=== PATIENT | female | born 1965 | race Caucasian/White ===

== ENCOUNTER 2016-08-21 08:58 | Day surgery (SDC) | payer OTHER ==
[2016-08-21] VITALS (8 sets, daily range): BP systolic 114–137; BP diastolic 64–75; PULSE 54–78; RESP 11–16; O2SAT 93–100
[~2016-08-21] VITALS: Ht 165.1 cm; Wt 134.9 kg
[~2016-08-21 08:58] MED LIST: AMLO2.5T PO; ATEN50TA PO; CeFAZolin Inj 3 GM in IV Premix IV ONE; HYG25 PO
[2016-08-21] MEDS ORDERED: Dexamethasone 4 mg/mL Inj ONE (08:59)
[2016-08-21] MEDS ORDERED: Propofol 10,000 mCg/mL 20 mL Inj ONE (08:59)
[2016-08-21] MEDS ORDERED: fentaNYL-PF 50 mCg/mL 2 mL Inj ONE (08:59)
[2016-08-21] MEDS ORDERED: Glycopyrrolate 0.2 mg/mL 5 mL Inj ONE (08:59)
[2016-08-21] MEDS ORDERED: MeTOProlol 1 mg/mL 5 mL Inj ONE (08:59)
[2016-08-21] MEDS ORDERED: Succinylcholine Chloride 20 mg/mL 5 mL Inj ONE (08:59)
[2016-08-21] MEDS ORDERED: Rocuronium 10 mg/mL 5 mL Inj ONE (08:59)
[2016-08-21] MEDS ORDERED: MetoCLOpramide 5 mg/mL 2 mL Inj ONE (08:59)
[2016-08-21] MEDS ORDERED: Ondansetron 2 mg/mL 2 mL Inj ONE (08:59)
[2016-08-21] MEDS ORDERED: EPHEDrine/NS 5 mg/mL 5 mL Syringe ONE (08:59)
[2016-08-21] MEDS ORDERED: Lidocaine PF 1% 30 mL Inj ONE (08:59)
[2016-08-21] MEDS ORDERED: HYDROmorphone 2 mg/mL Inj ONE (08:59)
[2016-08-21] MEDS: Lactated Ringer's 1,000 ML IV SCH ×2 (09:10→11:12)
--- NOTE | 2016-08-21 10:01 | PCM.HPANE ---
Patient Data Date of Service: Aug 21, 2016 Surgeon Admitting Provider: Attending Provider:Ayleen Taylor MD Primary Care Physician:Melissa Staton Other Provider:Chalo Pulido Anesthesia Reason for Visit Breast Cancer, Breast Asymmetry Ht/WT & BMI Height (Feet): 5 Height (Inches): 5 Weight (Kilograms): 134.9 Body Mass Index 49.00 Allergies Coded Allergies: No Known Allergies (Verified , 04/17/06) Diabetes History Hx Diabetes?: No MRSA MRSA: No Medications Hypertension Medication: Yes Home Meds Incl Beta Arnulfo: Yes (Atenolol 75mg) Date Beta Arnulfo Taken: Aug 21, 2016 Time Beta Arnulfo Taken: 0600 Reported Medications Atenolol 50 Mg Bmthpl02 Mg PO DAILY 07/11/16 Chlorthalidone 25 Mg Qznidb00 Mg PO DAILY 07/11/16 Amlodipine 2.5 Mg Tablet2.5 Mg PO DAILY 07/11/16 History History of ENT Problems?: No Hx of Heart Problems?: Yes Cardiovascular History: Positive for:: Hypertension Denies:: Chest Pain Heart Murmur Pacemaker Rheumatic Fever Thrombophlebitis Hx of Respiratory Problem?: No Respiratory History: Denies:: Asthma COPD Emphysema Oxygen Administration Pneumonia Tuberculosis Use of C-PAP Machine Use of Inhalers / NEBS Hx Neurologic Problems?: No Neurological History: Denies:: Alzheimer's Disease CVA Dementia Dizziness Headaches Multiple Sclerosis Parkinson's Disease Seizures Hx of GI Problems?: No Gastrointestinal History: Denies:: Cirrhosis Gall Bladder Disease Gastrointestinal Bleeding Hiatal Hernia Hx of Problems?: Yes Genitourinary History: Positive for:: Kidney Stones (hx of left kidney stones , lithotripsy) Denies:: HX of Hemodialysis Urinary Tract Infection Female Hx: Positive for:: Problems with Breasts? (right breast ca current admission problem) Denies:: Currently Endometriosis Pelvic Inflammatory Skin History: Denies:: History Skin Disorders? Pressure Ulcers Hx Musculoskeletal Problems?: No Hx of Psycho/Social Problems?: No Hx Surgeries?: Yes (Hysterectomy, excision tumor right upper neck, kidney stones) Hx Any Other Health Problems?: Yes Other History: Positive for:: Cancer (Right Breast Cancer; Cancer Tumor behind Right ear) Hospitalization ([facility]) Denies:: Endocrine Disease Thyroid Disease Hx Diabetes: No Hx Alcohol Use: YesHx Substance Use: No Smoking Status: Never Smoker Have You Smoked inLast 12 mo: No Stop/Bang Treated for Sleep Apnea?: Yes Do You Have a CPAP Machine?: Yes S-Snoring: Do You Snore Loudly: No T-Tired: feel tired, fatigued: No O-Obsered: Observed not breath: No P-Blood Pressure: treated: Yes B- Body Mass Index > 35 kg/m2: Yes A- Age over 50: Yes N- Neck Large Circumference: No G- Gender Male: No ALAN Total Score: 3 ALAN Risk Assessment: High Risk, =/>3 Yes ALAN Category 1: Yes Risk Assessment Category Category 1A: Patient has history of documented sleep apnea, and HAS NOT received any narcotic, sedative or anesthesia administration during this stay. Category 1B: Patient has history of documented sleep apnea, and HAS received any narcotic , sedative or anesthesia administration during this stay Category 2: Patient has SUSPECTED Obstructive Sleep Apnea, and HAS received any narcotic , sedative or anesthesia administration during this stay. Category 3: Patient has SUSPECTED Obstructive Sleep Apnea and HAS NOT received narcotic, sedative or anesthesia administration during this stay. Category 4: Outpatient in Procedural Areas with known sleep apnea or who screen positive for High Risk via the STOP/BANG questionnaire. Exam Exam Vital Signs Vital Signs Date Time Temp Pulse Resp B/P Pulse Ox O2 Delivery O2 Flow Rate FiO2 08/21/16 09:50 CPAP/BIPAP 08/21/16 09:47 36.3 54 16 114/74 97 Room Air 08/21/16 09:46 36.3 54 114/74 General Appearance: Alert, Oriented X3, Cooperative, No Acute Distress HEENT/AIRWAY: MP 3, Neck Movement (short, thick, FROM), Mouth Opening (3), Other (TMD<3) Lungs: Normal Air Movement, Diminished Heart: Exam Unremarkable, Regular Rate/Rhythm, Normal S1, Normal S2, No Murmurs /Rubs/Gallops Meds/Labs/Diagnostics Admission Meds Current Medications Lactated Ringer's (Lr) 1,000 ml @ 10 mls/hr Q24H IV Last administered on t 09:10; Start 08/21/16 at 05:00; Stop 08/25/16 at 08:59 Plan Impression Patient chart reviewed, patient interviewed and anesthestic plan with risks, benefits, and alternatives discussed, and informed consent obtained. NPO Status: 08/20 at 2100 ASA Physical Status: ASA3 Severe Disease Anesthetic Plan: GA Bene/Risks/Altern/Consents: Yes HP Complete Prior to Induction: Yes Geremias Kelley MD Aug 21, 2016 10:01
[2016-08-21] MEDS ORDERED: Lactated Ringer's 1,000 ML IV ONE ×2 (12:14→16:12)
--- NOTE | 2016-08-21 12:16 | DRSVH ---
PROCEDURE: NM SENTINEL NODE INJECTION ONLY, RIGHT BREAST RADIOPHARMACEUTICAL: 0.5 mCi Millipore filtered Tc-99m sulfur colloid. INDICATIONS: RIGHT BREAST CANCER PROCEDURE: The indications, alternatives, benefits, risks, and complications of the procedure were explained to the patient. Written informed consent was obtained and placed in the chart. The area around the nip ple was prepped and draped in a sterile fashion. Tc-99m sulfur colloid was injected in the outer edg e of the areola in the right breast. No image was obtained. IMPRESSION: Administration of radiotracer into the right breast periareolar region for intra-operati ve sentinel lymph node localization. Dictated by: Katya Limon M.D. on 08/21/2016 at 12:15 Approved by: Katya Limon M.D. on 08/21/2016 at 12:15
[2016-08-21] MEDS ORDERED: Lactated Ringer's 500 ML IV PRN (13:52)
[2016-08-21] MEDS ORDERED: Lactated Ringer's 1,000 ML IV SCH (13:52)
[2016-08-21] MEDS ORDERED: EPHEDrine Sulfate 50 mg/mL Inj IVPUSH PRN (13:55)
[2016-08-21] MEDS ORDERED: Dexamethasone 4 mg/mL Inj IVPUSH PRN (13:55)
[2016-08-21] MEDS ORDERED: fentaNYL-PF 50 mCg/mL 2 mL Inj IVPUSH PRN (13:55)
[2016-08-21] MEDS ORDERED: HYDROmorphone 1 mg/mL Inj IVPUSH PRN (13:55)
[2016-08-21] MEDS ORDERED: Ondansetron 2 mg/mL 2 mL Inj IVPUSH PRN (13:55)
[2016-08-21] MEDS ORDERED: MetoCLOpramide 5 mg/mL 2 mL Inj IVPUSH PRN (13:55)
[2016-08-21] MEDS ORDERED: Phenylephrine 10,000 mCg/mL Inj IVPUSH PRN (13:55)
[2016-08-21] MEDS ORDERED: Mineral Oil-Light (Sterile) 25 mL TOPICAL ONE (14:45)
--- NOTE | 2016-08-21 14:46 | PCM.SURGPO ---
Immediate Operative Note Date of Surgery: Aug 21, 2016 Pre Operative Diagnosis Right Breast Cancer Post Operative Diagnosis Right Breast Cancer Procedure Wire Localized R Partial Mastectomy with Right Axillary [place] lymph node biopsy Surgeon and Shoe Repair Supervisor Surgeon: Ayleen Taylor MD Assistants: Ajay Puentes PAC Findings Clip located in specimen radiograph. Additional Posterior, Lateral & Inferior Margins taken. SLN with Max activity of 25 with no background in the axilla Additional palpable Non sentinel node removed Complications There were no periprocedural complications identified. Surgical Specimen Removed: Yes Specimen sent to Pathology: Yes Anesthetic Administered: GA Grafts, Implants: None Output, Estimated Blood Loss: 5 Blood Admin during surgery: No Attending Statement Seo Coordinator listed was medically necessary for the successful completion of the case Ayleen Tayolr MD Aug 21, 2016 14:46
[2016-08-21] MEDS ORDERED: oxyCODONE-Acetamin 5-325 mg Tablet PO PRN (15:25)
[2016-08-21] MEDS ORDERED: CLIN150C2 PO (15:42)
--- NOTE | 2016-08-21 18:37 | OP ---
[address] [address] OPERATIVE REPORT PATIENT: RACHELLE SHAFFER : 1965 MR#: [id number] ADMIT: 08/21/2016 JOB ID: [id number] DATE OF SURGERY: 08/21/2016 PREOPERATIVE DIAGNOSIS(ES): Right breast cancer. POSTOPERATIVE DIAGNOSIS(ES): Right breast cancer. PROCEDURE PERFORMED: Wire localized right partial mastectomy with right axillary sentinel lymph node biopsy. SURGEON: Ayleen Taylor MD. ENAMEL APPLIER: Ajay Puentes PA-C INDICATIONS: The patient is a 51-year-old lady who had a screening mammogram done in May 2016 leading to the diagnosis of right breast cancer. She had no breast mass or discharge or other symptoms. The mammogram on June 05, 2016 showed a 1.6 cm irregular mass with spiculated margin in the right breast at 6 o'clock posterior depth. The ultrasound performed on June 14, 2016 confirmed it and an ultrasound-guided biopsy performed on June 22, 2016 showed invasive ductal carcinoma. She desired oncoplastic surgery with simultaneous breast reduction and she has seen my colleague, Dr. Raffi Ramirez and we plan to proceed at the same time after discussing the risks, benefits, and alternatives. She presented today and went to [facility] and ultrasound-guided wire localization. She then had radiocolloid injected in the day surgery area and was then brought to the operating room. PROCEDURE: Both the breasts were prepped and draped in the usual sterile fashion. A surgical time-out was undertaken using safety checklist, and all were in agreement. I began by operating on the right side and Dr. Ramirez started on the other side. Please refer to his dictation for his part of the operation. At the time of the skin preparation, the wire used to localize the right breast mass ended up, unfortunately, moving and actually went into the surgical site. But based on mammographic localization images, I made a semilunar incision within the skin island marked by Dr. Ramirez including the wire insertion site and developed planes underneath the skin going posteriorly all the way to the chest wall. After dissecting close to the surgical specimen circumferentially and we got down to the inferolateral aspect off the dissection, I was able to visualize the wire but it appeared to go farther beyond the palpable area of the tumor at this time. So, at this point, I decided to amputate the wire and send the first partial mastectomy specimen which I believed included the tumor. This specimen radiograph indeed confirmed the presence of the tumor and the biopsy clip. I then removed the wire and resected additional posterior and inferior and lateral margins to ensure clear margins widely around this area of the tumor. After ensuring good hemostasis, I then directed my attention to the axilla. Because we did not have good gamma probe activity as seen at the skin level in the axilla, we also injected 1 mL of methylene blue into the subareolar region before starting our breast dissection and massaged it. I made a 3 cm incision in the axilla and dissected all the way into the axilla through the axillary fascia, but still not able to detect any gamma probe activity or see any obvious blue dye. Upon dissection of the inferior aspect of the axillary lymph node packet, I did palpate some lymph nodes and while I was debating whether to perform a full axillary lymph node dissection, we increased the sensitivity off our gamma probe and were able to detect a single focus of gamma count close to a 20 on the lymph node. I went ahead and removed this lymph node with electrocautery and the ex vivo count was again confirmed to be of 25 with again no background count in the axilla. I did remove an additional nonsentinel node around this area which was palpable. After this, I turned over the operation to Dr. Raffi Ramirez for proceeding with the reduction mammoplasty on the right side. Please refer to his dictation for further operative details. [facility]
--- NOTE | 2016-08-22 00:29 | OP ---
[address] [address] OPERATIVE REPORT PATIENT: RACHELLE SHAFFER : 1965 MR#: [id number] ADMIT: 08/21/2016 JOB ID: [id number] DATE OF SURGERY: 08/21/2016 PREOPERATIVE DIAGNOSIS(ES): 1. Right-sided breast cancer. 2. Breast asymmetry, status post right segmentectomy. 3. Macromastia. POSTOPERATIVE DIAGNOSIS(ES): 1. Right-sided breast cancer. 2. Breast asymmetry, status post right segmentectomy. 3. Macromastia. PROCEDURE: 1. Left-sided breast reconstruction. 2. Right-sided breast reconstruction using a modified breast reduction. 3. Right-sided nipple areolar reconstruction with a full-thickness skin graft. SURGEON: Raffi Ramirez MD SUPPORT COORDINATOR: Ajay Puentes PA-C, who was present for necessary retraction, exposure and closure of incisions. ANESTHESIA: General anesthesia. ESTIMATED BLOOD LOSS: 30 cc for Plastic Surgery portion of the procedure. COMPLICATIONS: None apparent. SPECIMEN: Bilateral breast tissue to Pathology. Right side weighing 1.75 kg, left side 2.3 kg. DRAINS: Bilateral #15 round Jayme drain, one on each side. INDICATIONS FOR PROCEDURE: This is a 51-year-old, female patient, with a recently diagnosed breast cancer. The patient has been scheduled to undergo a right-sided segmentectomy. The patient desires oncoplastic type of closure. The patient also has significant macromastia. It was planned to carry out a left-sided reduction mammoplasty. The oncoplastic closure will be done in a reduction style to allow the patient to achieve symmetry. PROCEDURE AND FINDINGS: The patient was identified in the preoperative area and surgical sites were marked. With the patient in a sitting position, I marked the inframammary fold. Valenzuela pattern incisions were also marked. The new nipple-areolar position was marked at 23 cm and the Valenzuela triangle was 8 cm at its base. The patient was then taken back to the operating room and placed supine on the operating table. Appropriate time-outs were taken. General anesthesia was induced smoothly. I then finished marking the Valenzuela pattern incisions. I also marked the desired location for incision per Dr. Taylor, who will be performing the segmentectomy. I then turned my attention to the left breast. I then started to perform a breast reduction. Dr. Taylor worked on the right breast at the same time. A 42 mm nipple sizer was then used to ranulfo the new nipple-areolar complex. Inferior pedicle was then designed at 14 cm at its base and 10 cm at the level of the inferior border of the nipple-areolar complex. The pedicle is marked significantly wide as the patient has a long nipple to fold distance. Incision was then made around the new nipple-areolar complex and the inferior pedicle. Inferior intervening skin was then de-epithelialized. Incision was then made around the rest of the Valenzuela pattern incision. I then deepened the incision down into the subcutaneous tissue using electrocautery. Incision was deepened down into the subcutaneous tissue around the pedicle as well. I then elevated the superior skin flaps. The medial skin flap was elevated approximately 2 cm thick at the incision. As I approached the chest wall, I thickened the incision to approximately 3 cm. Laterally, the incision was carried down to the chest wall at the level of the breast capsule. Once this had been done, I turned my attention to the inferior pedicle. Incision was deepened down to the chest wall medially and laterally around the inferior pedicle while bevelling outwards to capture more perforators. Superiorly, the incision was deepened down through the breast tissue to the posterior breast capsule. I then followed the breast capsule down to the chest wall. The intervening tissue was then elevated off the chest wall. This allowed the tissue to be passed off to Pathology as a specimen. Hemostasis was obtained with electrocautery. At this point, the incision was temporarily stapled together. A new nipple-areolar complex was then marked with a 42 mm nipple sizer at 8 cm from the inframammary fold. Incision was then made around the keyhole with a #10 blade. The keyhole was then deepened down through the flap and removed. The nipple was then externalized. A #15 round Jayme drain was then placed into the surgical site, exiting at the lateral end of the incision. Incision was then reapproximated first with a layer of 3-0 Monocryl deep dermal suture, followed by 4-0 Monocryl running subcuticular suture. Drain was secured with a 3-0 nylon drain stitch. The left-sided breast tissue measured a little bit over 2.3 kg. At this point, Dr. Taylor has yet to complete his portion of the procedure. I returned after he has completed the inferior segmentectomy as well as the sentinel lymph node biopsy. At this point, I examined the surgical defect. It was noted that the inferior aspect of the breast was significantly encroached upon, and an inferior pedicle would not be possible. Due to this, I elected to proceed with the reduction and a nipple-areolar reconstruction using the nipple as a full-thickness skin graft. An inferior lateral based column of breast tissue was then designed that is approximately 14 cm at its base. I then turned my attention to the right nipple-areolar complex. Incision was then made around the nipple-areolar complex with a 42 mm nipple sizer. This was deepened down just through the skin. The nipple-areolar complex was then elevated as a full-thickness skin graft at a mid dermal level. Once this had been done, incision was then made around the Valenzuela pattern incision with a #10 blade and deepened down into the subcutaneous tissue with electrocautery. Incision was also made around the breast column that is inferiorly laterally based. This was again made with a #10 blade. The skin over the column was then excised with electrocautery. I then turned my attention to the superior medial skin flap in the Valenzuela incision. I incised the incision straight down to the chest wall starting approximately 2 cm thick. The base of the superior medial skin flap was approximately 5-6 cm thick. This was then transitioned to the lateral skin flap by bevelling the flap thinner and thinner until I can elevate the flap off of the breast capsule. Once this has been done, I turned my attention to the breast tissue column. Again incision was deepened around the column down to the underlying chest wall. The tissue between the lower dissection and the upper dissection was then elevated off of the chest wall. This was passed off to Pathology. Of note, Dr. Taylor's specimen weighed approximately 270 g. My resection specimen weighed approximately 1.8 kg, or slightly less. At this point, I temporally stapled the skin together. It was noted that the breast mounds were quite similar in contour and volume. At this point, a #15 round Jayme drain was then placed into the surgical site, exiting on the lateral aspect of the inframammary incision. This was secured using a 3-0 nylon drain stitch. The incision was then reapproximated using a layer of 3-0 Monocryl deep dermal suture, followed by 4-0 Monocryl running subcuticular suture. The full-thickness nipple graft was then defatted with a pair of Metzenbaum scissors. Using a 42 mm nipple Sizer, a new nipple-areolar complex position was then marked on the right breast mound. Incision was then made along the ranulfo. This area was then de-epithelialized. The full-thickness skin graft was then placed over the epithelialized area and sutured in place first with several 3-0 silk simple interrupted sutures with the tails left long. A layer of 4-0 nylon simple running suture was then placed circumferentially. A bolster dressing was then made consisting of Xeroform and wrapped around 2 inch Webril that had been soaked in mineral oil and saline. The bolster dressing was then placed over the graft and secured in place using the tails from the 3-0 silk sutures. The patient tolerated the procedure well. Needle count, sponge count, and instrument counts were correct at the end of the procedure. The patient was extubated and transported to recovery in stable condition.
--- NOTE | 2016-08-22 07:33 | DRSVH ---
SPECIMEN RIGHT BREAST: 08/21/2016 CLINICAL: Breast specimen. Correlation is made to exams dated: 08/21/2016 localization, 06/22/2016 mammogram, and 06/04/2016 mammog [facility]. A wire localization and lumpectomy specimen was imaged for the previous biopsy site located in the r ight breast at 5 o'clock middle depth. IMPRESSION: SPECIMEN The imaged specimen includes the lesion, a biopsy clip, and the distal portion of the biopsy wire. This exam was interpreted at Station ID: [id number]. Sapphire Ta M.D. lk/:08/21/2016 17:02:37 Additional referring physicians: AMINA MCDERMOTT, NANDO MEHTA
--- NOTE | 2016-08-22 09:51 | PCM.ANEP1 ---
Post Anesthesia Phase 1 PACU Phase 1 Assessment Date of Service: Aug 21, 2016 Anesthetic Administered: GA Level of Alertness: Awake, talking SUMMERS's with Equal Strength: Yes Pain: No Pain Scale Score: 0 Nausea or Vomiting: No Oxygen Delivery: Simple Mask Lungs: Normal Air Movement, Diminished Geremias Kelley MD Aug 22, 2016 09:51
--- NOTE | 2016-08-22 09:51 | PCM.ANEP2 ---
Post Anesthesia Evaluation ASA/CMS Post Anesthesia VS in Patient's Normal Range?: Yes Resp Stable; Airway Patent?: Yes CV Function & Hydration Stable: Yes Mental Status Recovered?: Yes Pain control Satisfactory?: Yes N/V Control Satisfactory?: Yes Geremias Kelley MD Aug 22, 2016 09:51
--- NOTE | 2016-08-24 14:34 | PATH ---
SURGICAL PATHOLOGY Attending Physician:Ayleen Taylor MD CASE STATUS: Signed Out * Amended * PATIENT NAME: RACHELLE SHAFFER PID: [id number] : 1965 DATE COLLECTED:08/21/2016 00:00 SPECIMEN: 1: Breast Reduction 2: Breast Segmentectomy/Partial Mastectomy (w/o lymph nodes) 3: Breast Margin 4: Breast Margin 5: Breast Margin 6: [place] Lymph Node 7: Lymph Node, Biopsy 8: Breast Reduction CLINICAL HISTORY: BREAST CANCER 1). LEFT BREAST TISSUE 2). RIGHT PARTIAL MASTECTOMY, LOWER QUADRANT 3). NEW POSTERIOR MARGIN 4). NEW INFERIOR MARGIN 5). NEW LATERAL MARGIN 6). SENTINEL LYMPH NODE #1 7). RIGHT AXILLARY NON-SENTINEL LYMPH NODE 8). RIGHT BREAST TISSUE FINAL DIAGNOSIS: 1.LEFT BREAST TISSUE (REDUCTION MAMMOPLASTY, 2,300 GRAMS): BREAST TISSUE, NEGATIVE FOR MALIGNANCY AND SIGNIFICANT ATYPIA. 2.RIGHT PARTIAL MASTECTOMY (EXCISIONAL SPECIMEN): INVASIVE CARCINOMA OF THE BREAST. CAP CANCER CASE SUMMARY INVASIVE CARCINOMA OF THE BREAST: PROCEDURE: EXCISIONAL BIOPSY WITH LOCALIZING WIRE LYMPH NODE SAMPLING: ONE SENTINEL LYMPH NODE AND ONE NON-SENTINEL LYMPH NODE (PARTS 6 AND 7) SPECIMEN LATERALITY: RIGHT TUMOR SITE: LOWER OUTER QUADRANT TUMOR SIZE: 1.7 X 1.5 X 1.3 CM. HISTOLOGIC TYPE: INFILTRATING DUCTAL CARCINOMA HISTOLOGIC GRADE: DAVID HISTOLOGIC SCORE 8 OF 9 Glandular/Tubular differentiation: Score 2 OF 3 Nuclear Pleomorphism: Score 3 OF 3 Mitotic Rate: Score 3 OF 3 Overall Grade: Grade DAVID GRADE 3 OF 3 (HIGH GRADE) TUMOR FOCALITY: SINGLE FOCUS DUCTAL CARCINOMA IN SITU: FOCALLY PRESENT Size (Extent) of DCIS: Scattered small foci. Architectural patterns: SOLID Nuclear grade: Grade HIGH Necrosis: ABSENT MARGINS INVASIVE CARCINOMA: Anterior: 2.1 CM Posterior: 2.0 CM Superior: 0.9 CM Inferior: 0.5 CM Medial: 11.0 CM Lateral: 0.1 CM DUCTAL CARCINOMA IN SITU: FOCALLY PRESENT AND WIDELY EXCISED. ALL MARGINS GREATER THAN 1.0 CM LYMPH NODES Total number of lymph nodes examined: TWO Number of sentinel lymph nodes examined: ONE Lymph Node Involvement: BOTH LYMPH NODES NEGATIVE FOR TUMOR Method of Evaluation of [place] Lymph Nodes: MULTIPLE SERIAL HISTOLOGIC SECTIONS LYMPH-VASCULAR INVASION: NEGATIVE DERMAL LYMPH-VASCULAR INVASION: NEGATIVE PATHOLOGIC STAGING: AJCC, 7th ed., 2010 PRIMARY TUMOR: pT1c REGIONAL LYMPH NODES: pN0 (sn) ANCILLARY STUDIES: HORMONE RECEPTOR ANALYSIS PENDING, TO BE REPORTED BY ADDENDUM 3.NEW POSTERIOR MARGIN: BREAST TISSUE NEGATIVE FOR MALIGNANCY AND SIGNIFICANT ATYPIA. 4.NEW INFERIOR MARGIN: BENIGN BREAST TISSUE, NEGATIVE FOR ATYPIA. 5.NEW LATERAL MARGIN: BENIGN BREAST TISSUE, NEGATIVE FOR ATYPIA. 6.SENTINEL LYMPH NODE: ONE LYMPH NODE NEGATIVE FOR MALIGNANCY. 7.RIGHT AXILLARY NON-SENTINEL LYMPH NODE: ONE LYMPH NODE NEGATIVE FOR MALIGNANCY. 8.RIGHT BREAST TISSUE (REDUCTION MAMMOPLASTY 1750 GRAMS): BENIGN BREAST TISSUE NEGATIVE FOR MALIGNANCY. ICD10 code; C50.511 GROSS DESCRIPTION: The specimens are received in formalin, labeled with the patient's name, and sublabeled as the following: (1) left breast tissue; (2) right partial mastectomy; (3) new posterior margin, right; (4) inferior margin, right; (5) new lateral margin, right; (1) The specimen consists of multiple unoriented pieces of breast tissue (2300 g, 45.5 x 20.5 x 6.3 cm in aggregate) partially covered by skin (40.5 x 16.5 cm). The breast tissue is fatty with no nodules or masses or lesions identified. The skin is fam-pink and contains a fam solid rubbery nodule (1.3 x 1.0 x 0.7 cm) located 1.1 cm from the closest peripheral resection margin. The nodule has a hemorrhagic cut surface. Section code: (1A) nodule, bisected, entirely submitted; (1B, 1C) breast tissue, human resources hr representative. (2) The specimen consists of a piece of breast tissue (8.9 cm AP, 3.2 cm SI, 13.2 cm ML) partially covered by an ellipse of skin (1.1 cm SI, 4.5 cm ML). The specimen is oriented with 2 black sutures (short-superior, long-lateral). No localization wire is visibly present before slicing. The specimen is serially sectioned ML into 34 slices with the medial and lateral resection margins slices #1 and #34 respectively. A portion of a localization wire is identified within the fatty tissue of slice #29. The breast tissue is fatty and contains a fam-white and yellow solid firm irregular mass (1.7 x 1.5 x 1.3 cm) within slices #31-#34, which correlates with the mammogram report of June 05, 2016. The mass is 2.1 cm from the anterior, 2.0 cm from the posterior, 1.2 cm in the superior, 0.8 cm from the inferior, 11.5 cm from the medial, and less than 0.1 cm from the lateral resection margins. No other nodules, masses or lesions are identified. The skin is fam-white and unremarkable. Ink code: purple-anterior; yellow-posterior; black-superior; orange-inferior; green-medial; blue-lateral. Section code: (2A) skin, human resources hr representative; (2B) medial resection margin, perpendicularly sectioned, human resources hr representative; (2C) slice #30, tissue adjacent to mass, human resources hr representative; (2D-2G) slice #31, quartered, entirely submitted; (2H-2J) slice #32, trisected, entirely submitted; (2K-2M) slice #33, trisected, entirely submitted; (2N-2O) lateral resection margin, perpendicularly sectioned, entirely submitted. (3) The specimen consists of a piece of breast tissue (2.2 cm AP, 4.3 cm SI, 6.5 cm ML) with no overlying skin. The specimen is oriented with 2 black sutures (short-superior, long-lateral). No localization wire is present. The breast tissue is fatty with no nodules, masses or lesions identified. Ink code: purple-anterior; yellow-posterior; black-superior; orange-inferior; green-medial; blue-lateral. Section code: (3A-3Y) breast tissue serially sectioned and submitted ML. Specimen entirely submitted. (4) The specimen consists of a piece of breast tissue (4.5 cm AP, 1.2 cm SI, 4.2 cm ML) with no overlying skin. The specimen is oriented with 2 black sutures (short-new inferior, long-lateral). No localization wire is present. The breast tissue is fatty with no nodules, masses or lesions identified. Ink code: purple-anterior; yellow-posterior; black-superior; orange-inferior; green-medial; blue-lateral. Section code: (4A-4H) breast tissue serially sectioned and submitted ML. Specimen entirely submitted. (5) The specimen consists of a piece of breast tissue (9.0 cm AP, 4.8-8.7 cm SI, 0.5-1.7 cm ML) with no overlying skin. The specimen is oriented with 2 black sutures (short-superior, long left lateral). No localization wire is present. The breast tissue is fatty with no nodules, masses or lesions identified. Ink code: purple-anterior; yellow-posterior; black-superior; orange-inferior; green-medial; blue-lateral. Section code: (5A-5FF) breast tissue, serially sectioned and submitted AP. Specimen entirely submitted. (6) The specimen consists of a lymph node (3.7 x 3.1 x 1.0 cm). Section code: (6A-6E) one lymph node, serially sectioned. Specimen entirely submitted. (7) The specimen consists of a lymph node (3.8 x 2.1 x 1.0 cm). Section code: (7A-7D) one lymph node, serially sectioned. Specimen entirely submitted. (8) The specimen consists of multiple unoriented pieces of breast tissue (1750 g, 42.5 x 18.5 x 5.8 cm in aggregate) partially covered by skin (35.5 x 16.5 cm) with a partial nipple/areola complex (7.0 x 5.5 cm). The breast tissue is fatty with no nodules or masses or lesions identified. The skin is fam-pink and contains a hole (5.0 x 1.5 cm) located 1.9 cm from the closest peripheral skin resection margin. Ink code: orange-hole. Section code: (8A) nipple; (8B-8D) breast tissue, human resources hr representative. Note: Approximate total fixation time in formalin for all specimens-52 hours in 30 minutes calculated using a collection date of August 21, 2016 with times in fixative of 4887-2230. 08/23/16 JM MICRO DESCRIPTION: See diagnosis. ICD-9 CODES: CPT CODES: 1: 79835 2: 38054, 09459, 91065, 30313, inter, 96102, 62597 3: 14811 4: 15085 5: 60282 6: 75133 7: 16879 8: 32629 BreastIHC: 41285(4) PROCEDURE/ADDENDA: Breast Immunohistochemistry SPI Interpretation Corrected site, to Right Partial Mastectomy. Results-Comments Hormone Receptor Results: 2.RIGHT PARTIAL MASTECTOMY (EXCISIONAL SPECIMEN): INVASIVE DUCTAL CARCINOMA. ESTROGEN RECEPTOR: STRONGLY POSITIVE (APPROXIMATELY 100%). PROGESTERONE RECEPTOR: STRONGLY POSITIVE (APPROXIMATELY 100%). HER2: 2+. FISH ORDERED, TO BE REPORTED BY ADDENDUM. This test was developed and its performance characteristics determined by [facility]. It has not been cleared or approved by the [place]. [place]. Food and Drug Administration. The FDA has determined that such clearance or approval is not necessary. This test is used for clinical purposes. It should not be regarded as investigational or for research. Electronically Signed Out Feng Palumbo MD Amendments for Breast Immunohistochemistry SPI (08/27/2016) Amended: 08/28/2016 by Shila Sal Reason:Tissue Source Correction Corrected to Right Breast Previous Signout Date: 08/27/2016 Addendum SPI Addendum Diagnosis TEST: HER-2/CEP17 FISH PATIENT RATIO: 1.27 Ave Her2/lluvia: 3.30 Ave CEP17: 2.60 FISH RESULT: NEGATIVE FOR AMPLIFICATION OF HER-2/lluvia Addendum Comment Please see [facility] Report [id number] for complete details. Electronically Signed Out Feng Palumbo MD Addendum SPI Addendum Diagnosis TEST: Oncotype DX Breast Recurrence Score Recurrence Score Result: 17 ER Score: 10.3 Positive AL Score: =10.0 Positive HER2 Score: 9.1 Negative Addendum Comment Please see [facility] report for [id number] for complete details. Testing and Interpretation by [facility], [place], [place]. Testing requested by Dr. Jiménez, [facility]. Electronically Signed Out Shila Aleman MD AMENDMENT(S): Amended: 08/27/2016 by Ida Sanchez Reason:Amended Diagnosis This Amendment is to change part 2 from "LEFT" to "RIGHT" Previous Signout Date: 08/24/2016 Electronically Signed Out Feng Palumbo MD [facility] Pathology [facility] [address], [place] [address] Technical component performed at [facility], [address], [place], [address]
[2016-09-03] MEDS ORDERED: OXYC1TAB24 PO (15:46)
== END 2016-08-21 23:59 | disposition home or self-care (01) ==
LOC: SAS 08:58
PROVIDERS: ATTEND Student in an Organized Health Care Education/Training Program
DX: C50.911 Malignant neoplasm of unspecified site of right female breast (principal); C50.512 Malignant neoplasm of lower-outer quadrant of left female breast; N65.1 Disproportion of reconstructed breast; I10 Essential (primary) hypertension; Z79.899 Other long term (current) drug therapy